=== PATIENT | female | born 1955 | race Caucasian/White ===

== ENCOUNTER 2016-11-10 16:27 | Outpatient (CLI) | payer BC ==
--- NOTE | 2016-11-10 18:59 | DIAGNOSTIC IMAGING REPORT ---
PROCEDURE: US VENOUS - BILATERAL EXT INDICATION: Previous left vein ablation. Right leg swelling. TECHNIQUE: Duplex sonography of the deep venous system in the bilateral lower extremities was performed in the upright and semi-upright position. Compression and augmentation techniques were used. COMPARISON: There is a venous ultrasound lower extremities on 04/28/2013 FINDINGS: Right: The main right greater saphenous vein demonstrates reflux throughout (largest diameter 19 mm) associated multiple varicosities of the thigh and calf. There is an accessory saphenous vein which extends anterolaterally and is associated with reflux throughout extending into a large group of varicose veins in the mid thigh. The deep venous system of the right lower extremity is competent. There is no evidence of deep vein thrombosis. Left: The main left greater saphenous vein demonstrates reflux throughout (largest diameter 7 mm) associated with multiple varicosities of the thigh and calf. There is an accessory anterior lateral saphenous vein which also proximal reflex, with sequela of the ablation distally. Left deep system demonstrates valvular incompetence in the proximal left common femoral vein (diameter 15 mm). Left proximal superficial femoral vein is competent. There is no evidence of deep vein thrombosis. IMPRESSION: 1. 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 2. Valvular incompetence throughout the main right greater saphenous vein associated with multiple varicosities. 3. Valvular incompetence in the accessory right saphenous vein which extends into a group of varicosities in the proximal thigh. 4. Competent deep system of the right lower extremity. 5. Valvular incompetence throughout the left main greater saphenous vein associated with multiple varicosities. 6.. Valvular incompetence in the proximal accessory left saphenous vein with prior distal ablation. 7.. Valvular incompetence in the proximal left common femoral vein (deep system). 8. No evidence of superficial or deep vein thrombosis.
== END 2016-11-10 23:00 ==
LOC: US SRH 16:27
DX: I87.2 Venous insufficiency (chronic) (peripheral) (principal)